=== PATIENT | male | born 1940 | race Caucasian/White ===

== ENCOUNTER 2017-02-18 05:15 | Day surgery (SDC) | payer OTHER ==
[~2017-02-18] VITALS: Ht 185.4 cm; Wt 119.3 kg
--- NOTE | ~2017-02-18 | O ---
[facility] [place] [address] OPERATIVE REPORT Name: HUMBERTO VALIENTE Room #: DEP [facility].#: [id number] Admission: 02/18/17 Attend Phys: Fermin Sharma MD Discharge: 02/18/17 Date of : 40 Report #: [id number] THIS REPORT FOR: //name// CC: Kade Hardwick II DO Augustin Owusu DO Fermin Sharma DATE OF SERVICE: 02/18/2017 SURGEON: Fermin Sharma MD PREOPERATIVE DIAGNOSIS: Bilateral nasal lacrimal duct obstruction. POSTOPERATIVE DIAGNOSIS: Bilateral nasal lacrimal duct obstruction. OPERATION PERFORMED: Bilateral endoscopic dacryoplasty with silicone intubation. ANESTHESIA: General. COMPLICATIONS: None. INDICATIONS FOR SURGERY: This patient has acquired bilateral nasal lacrimal duct stenosis with chronic tearing and discharge, both eyes. The current procedures are undertaken in order to improve the patient's level of lacrimal outflow and visual clarity. Informed consent was obtained to include but not limited to the potential risks for damage to the eye, loss of vision, bleeding, infection, failure to improve the problem and need for further surgery. DESCRIPTION OF OPERATION: The patient was taken to the operating room, where general anesthesia was administered. The medial canthi were anesthetized with 2% Xylocaine with epinephrine mixed with equal parts of 0.75% Marcaine with Wydase. The lateral mclaughlin of the nose were then bilaterally injected with the same anesthetic mixture. The nose was packed with Afrin-soaked cottonoids. The patient was then prepped and draped in the usual sterile fashion. A moist compress was placed on the left eye while attention was turned to the right side. The superior and inferior puncta were then atraumatically dilated with a punctum dilator. A size 0 lacrimal probe was then passed through the superior canalicular system and through the stenosed nasal lacrimal duct. The nasal packing was removed and the endoscope was brought into the field. The inferior turbinate was gently infractured with a [place] periosteal elevator to allow [facility] [address] [place] [address] OPERATIVE REPORT Name: HUMBERTO VALIENTE Room #: DEP [facility].#: [id number] Admission: 02/18/17 Attend Phys: Fermin Sharma MD Discharge: 02/18/17 Date of : 40 Report #: [id number] visualization of the inferior meatus in the area of the opening of the valve of Hasner in the nose. The probe was found and confirmed to be in the proper location. It was removed and subsequently replaced with a size 1 and a size 2 Rock probe, which also had their passage confirmed endoscopically to be in the proper location. A 3 by 15 LacriCatheter was lubricated with a small quantity of ophthalmic antibiotic ointment. The LacriCatheter was then passed through the superior canalicular system and the stenosed nasal lacrimal duct. The LacriCatheter was confirmed to be in the proper location endoscopically intranasally in the inferior meatus. The LacriCatheter was inflated to 9 atmospheres for 90 seconds and deflated. The catheter was then inflated to 9 atmospheres for 60 seconds. The catheter was then withdrawn to the proximal black ring. It was then inflated to 9 atmospheres for 90 seconds. The balloon was then deflated and reinflated to 9 atmospheres for 60 seconds. The balloon was the aspirated and withdrawn to the distal black ring. It was then inflated to 9 atmospheres for 90 seconds. The balloon was deflated and reinflated to 9 atmospheres for 60 seconds. The balloon was then deflated and vigorously aspirated as it was withdrawn through the superior canalicular system. A Carpenter tube was then passed through the superior canalicular system and out the dilated duct. The Carpenter tube was secured under the inferior turbinate in the inferior meatus with a Carpenter hook and retrieved endoscopically. The Carpenter tube was then passed through the inferior canalicular system in a similar fashion and was retrieved endoscopically in the nose atraumatically. The Carpenter tube was then secured to itself with 3 square throws and then to the lateral wall of the nose with a 5-0 Prolene suture. Attention was then turned to the other side, where the same procedure was performed. Antibiotic steroid drops were then placed in both eyes. A small quantity of ophthalmic antibiotic ointment was placed on the Carpenter tube. The patient was then transported to the recovery area with no anesthetic or operative complications being noted. By: [id number] Fermin Sharma MD /nt
--- NOTE | ~2017-02-18 | EKG ---
[address] [place] [address] ELECTROCARDIOGRAM REPORT Name: HUMBERTO VALIENTE [id number] Admission: 02/18/17 Attend Phys: Fermin Sharma MD Discharge: 02/18/17 Date of : 40 Report #: [id number] THIS REPORT FOR: //name// [facility] Test Date: 2017-02-18 Test Time: 10:52:14 Pat Name: HUMBERTO VALIENTE Department: Room: 150 14 Gender: M Ripening Room Operator: JAZLYN : 1940 Requested By: Fermin Sharma Order Number: [id number] MD: Arley Quintero Measurements Intervals [place] Rate: 54 P: 26 IN: 152 QRS: -60 QRSD: 150 T: 41 QT: 482 QTc: 457 Interpretive Statements Sinus bradycardia RBBB and LAFB Compared to ECG 12/01/2012 12:34:49 Left anterior fascicular block now present Right bundle-branch block now present Possible ischemia no longer present Electronically Signed On 02-19-2017 9:06:17 DIRECTOR OF RESEARCH AND DEVELOPMENT by Arley Quintero [email or web address] <ELECTRONICALLY SIGNED> By: Arley Quintero MD, [facility] 02/19/17 0906 [id number] Arley Quintero MD, [facility] /EPI
[~2017-02-18 05:15] MED LIST: AMBIEN 10 MG TA10 MG PO; CARDIZEM CD180 MG PO; CARVEDILOL6.25 MG PO; COUMADIN 5 MG TA5 M1 PO; JANTOVEN10 MG PO; LISINOPRIL10 MG PO; SPIRONOLACTONE25 M1 PO; VERAPAMIL ER120 M1 PO; WARFARIN SODIUM2 MG PO
[2017-02-18 13:03] VITALS: BP 132/85
== END 2017-02-18 14:00 | disposition home or self-care (01) ==
LOC: OR 05:15 → TBA 05:15 → OR 13:31
DX: H04.553 Acquired stenosis of bilateral nasolacrimal duct (principal)
CPT/HCPCS: 50010; 50101; 50261; 50386; 50398; 51777; 62110; 62900; 64037; 70005